=== PATIENT | male | born 1940 | race African-American/Black ===

== ENCOUNTER 2016-12-04 15:27 | Emergency (ER) | payer MEDICARE, OTHER ==
[~2016-12-04] VITALS: Ht 175.3 cm; Wt 100.0 kg
[~2016-12-04 15:27] MED LIST: AMOXICILLIN 8751 TAB PO; ASPIR-LOW81 MG PO; AZITHROMYCIN250 MG PO; CATAPRES 0.1MG0.1 MG PO; CENTRUM1 TAB PO; CORICIDIN 325 M1 TAB PO; COSOPT EYE; DIOVAN80 M1 PO; FISH OIL1 IU PO; FISH OIL1000 MG PO; FLEXERIL 1010 MG/TAB PO; GARLIC PO; HCTZ12.5TAB PO; HYTRIN1 MG PO; IBUPROFEN800 MG PO; INDERAL PO; INDERAL80 MG PO; LISINOPRIL5 MG PO; NORCO 325 MG-51 TAB PO; SAW PALMETTO PO; SIMVISTATIN; TERAZOSIN HCL PO; XALATAN; ZOCOR 20MG20 MG PO
[2016-12-04 15:29] VITALS: BP 124/58; PULSE 68; TEMP 97.7
[2016-12-04] MEDS ORDERED: XALATAN EYE DROPS OD (15:34)
[2016-12-04] MEDS ORDERED: ZONTIVITY (15:34)
[2016-12-04] MEDS ORDERED: COSOPT 2%-0.5%10 ML OU (15:34)
[2016-12-04] MEDS ORDERED: ALPHAGAN P 15 M15 ML OU (15:35)
[2016-12-04] MEDS ORDERED: HYTRIN 1MG C1 MG/CAP PO (15:35)
[2016-12-04] MEDS ORDERED: BONINE25 MG PO (15:58)
== END 2016-12-04 16:16 | disposition home or self-care (01) ==
LOC: COL.ER 15:27
DX: H81.22 Vestibular neuronitis, left ear (principal); I10 Essential (primary) hypertension

== ENCOUNTER → 2016-12-11 | Outpatient (CLI) | payer MEDICARE, OTHER ==
[~2016-12-11] MED LIST changes: +ALPHAGAN P 15 M15 ML OU; +BONINE25 MG PO; +COSOPT 2%-0.5%10 ML OU; +HYTRIN 1MG C1 MG/CAP PO; +XALATAN EYE DROPS OD; +ZONTIVITY
== END ==
LOC: COL.VAS 09:58
DX: I65.23 Occlusion and stenosis of bilateral carotid arteries (principal)

== ENCOUNTER → 2018-04-13 | Outpatient (CLI) | payer MEDICARE, OTHER | LOC: MHCPAIN 10:07 | DX: G89.29 Other chronic pain (principal); M47.817 Spondylosis without myelopathy or radiculopathy, lumbosacral region; M54.16 Radiculopathy, lumbar region; M53.3 Sacrococcygeal disorders, not elsewhere classified; M48.061 Spinal stenosis, lumbar region without neurogenic claudication | CPT/HCPCS: G0463 ==

== ENCOUNTER 2018-04-21 10:30 | Outpatient (RCR) | payer MEDICARE, OTHER | END 2018-04-25 | disposition home or self-care (01) | LOC: MKS.ESL.PT | DX: M54.5 Low back pain (principal) | CPT/HCPCS: G0283-GP; G8978-GP; G8979-GP ==

== ENCOUNTER → 2018-04-22 | Outpatient (CLI) | payer MEDICARE, OTHER | LOC: MHCPAIN 12:54 | DX: M54.16 Radiculopathy, lumbar region (principal) | CPT/HCPCS: J1100; Q9967 ==

== ENCOUNTER → 2018-05-12 | Outpatient (CLI) | payer MEDICARE, OTHER | LOC: MHCPAIN 11:01 | DX: G89.29 Other chronic pain (principal); M47.817 Spondylosis without myelopathy or radiculopathy, lumbosacral region; M54.16 Radiculopathy, lumbar region; M53.3 Sacrococcygeal disorders, not elsewhere classified; M48.00 Spinal stenosis, site unspecified | CPT/HCPCS: G0463 ==

== ENCOUNTER → 2018-06-01 | Outpatient (CLI) | payer MEDICARE, OTHER | LOC: MHCPAIN 09:55 | DX: G89.29 Other chronic pain (principal); M47.817 Spondylosis without myelopathy or radiculopathy, lumbosacral region; M54.16 Radiculopathy, lumbar region; M53.3 Sacrococcygeal disorders, not elsewhere classified; M48.061 Spinal stenosis, lumbar region without neurogenic claudication | CPT/HCPCS: G0463 ==

== ENCOUNTER 2018-06-08 11:00 | Outpatient (RCR) | payer MEDICARE, OTHER | END 2018-08-23 | disposition home or self-care (01) | LOC: MKS.ESL.PT | DX: M48.061 Spinal stenosis, lumbar region without neurogenic claudication (principal) ==

== ENCOUNTER → 2018-06-10 | Outpatient (CLI) | payer MEDICARE, OTHER | LOC: MHCPAIN 08:29 | DX: M47.817 Spondylosis without myelopathy or radiculopathy, lumbosacral region (principal); M54.16 Radiculopathy, lumbar region | CPT/HCPCS: J1100; Q9967 ==

== ENCOUNTER → 2018-07-13 | Outpatient (CLI) | payer MEDICARE, OTHER | LOC: MHCPAIN 13:04 | DX: G89.29 Other chronic pain (principal); M47.817 Spondylosis without myelopathy or radiculopathy, lumbosacral region; M54.16 Radiculopathy, lumbar region; M53.3 Sacrococcygeal disorders, not elsewhere classified; M48.061 Spinal stenosis, lumbar region without neurogenic claudication | CPT/HCPCS: G0463 ==

== ENCOUNTER → 2018-07-22 | Outpatient (CLI) | payer MEDICARE, OTHER | LOC: MHCPAIN 13:43 | DX: M47.817 Spondylosis without myelopathy or radiculopathy, lumbosacral region (principal); M54.16 Radiculopathy, lumbar region ==

== ENCOUNTER → 2018-09-20 | Outpatient (CLI) | payer MEDICARE, OTHER | LOC: COL.RAD 09:45 | DX: M48.07 Spinal stenosis, lumbosacral region (principal) ==

== ENCOUNTER 2018-12-06 15:15 | Outpatient (RCR) | payer MEDICARE, OTHER | END 2019-02-16 | LOC: MKS.ESL.PT | DX: M48.062 Spinal stenosis, lumbar region with neurogenic claudication (principal) ==

== ENCOUNTER 2019-05-04 13:00 | Outpatient (RCR) | payer MEDICARE, OTHER | END 2019-05-05 09:02 | disposition home or self-care (01) | LOC: WSC 13:00 | DX: M48.062 Spinal stenosis, lumbar region with neurogenic claudication (principal); M54.16 Radiculopathy, lumbar region ==